=== PATIENT | female | born 1990 | race Asian ===

== ENCOUNTER 2024-12-04 20:24 | Inpatient (IN) | payer MEDICAID, SELFPAY ==
--- NOTE | ~2024-12-04 | XR_ITS ---
CLINICAL HISTORY: sickle cell crisis 2 view chest x-ray Comparison: None provided Findings: Bibasilar atelectasis. No significant pleural effusion or pneumothorax. Prominent cardiac silhouette. Right chest port tip projects near the cavoatrial junction. No acute fracture. IMPRESSION: Bibasilar atelectasis. This document has been electronically signed by: Mayco Arana MD on 12/05/2024 00:54:41
--- NOTE | ~2024-12-04 | US_ITS ---
CLINICAL HISTORY: transaminitis, high bili, SC crisis, back pain US abdomen limited with duplex and color Doppler Comparison: None Findings: Visualized pancreas is normal. Tail obscured by bowel gas. Liver is normal in size and mildly echogenic throughout. Right lobe length 15.7 cm. No focal hepatic masses. Common duct 3.3 mm diameter. Post cholecystectomy. Main portal vein antegrade. Right kidney measures, 11.0 cm in length. Normal cortical width and echotexture. No hydronephrosis calculus or mass. Impression: 1. Normal-sized liver with coarse hepatic echotexture reflecting hepatic steatosis or diffuse hepatocellular disease. 2. Post cholecystectomy. Normal caliber common bile duct. 3. Antegrade flow portal vein. This document has been electronically signed by: Ananda Mosquera MD on 12/05/2024 15:13:04
[2024-12-04 20:39] VITALS: BP 128/72; PULSE 112; RESP 16; TEMP 37.1; O2SAT 95; BMI 29.6
--- NOTE | 2024-12-04 20:40 | ECG_ITS ---
Test Reason : SICKLE CELL Blood Pressure : */* mmHG Vent. Rate : 102 BPM Atrial Rate : 102 BPM P-R Int : 136 ms QRS Dur : 74 ms QT Int : 312 ms P-R-T Axes : 34 20 2 degrees QTcB Int : 406 ms Sinus tachycardia Nonspecific T wave abnormality Abnormal ECG No previous ECGs available Referred By: Alton Schaffer Electronically Signed By: ELVIA GONZALES MD
--- NOTE | 2024-12-04 20:40 | ED_ITS ---
HPI - General Adult General Chief complaint: General Medical Stated complaint: not feeling well (Sickle Cell Anemia) Time Seen by Provider: 12/04/24 22:31 Source: patient Mode of arrival: ambulatory Limitations: no limitations History of Present Illness ED Provider: HPI narrative: This is a 34-year-old woman with a history of sickle cell disease, falls up with Dr. 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 Related Data Allergies Allergy/AdvReac Type Severity Reaction Status Date / Time Chocolate Allergy Anaphylaxis Verified 12/04/24 20:40 Review of Systems 2 Constitutional: Constitutional: Reports as per [facility] Social History Social History Smoked in Last 30 Days: No Use of substances other than those prescribed or required for medical reasons: No Advance Directives: No Advance Directives Information Provided: No Patient : No Physical Exam ED Vital Signs: Vital Signs - 24 hr 12/04/24 20:39 12/04/24 22:26 12/05/24 00:31 Temperature 98.8 F 99.1 F 98.8 F Pulse Rate 112 H 106 H 104 H Respiratory Rate 16 18 16 Blood Pressure 128/72 109/70 108/64 Pulse Oximetry 95 98 98 Oxygen Delivery Method Room Air Room Air Room Air BMI result Body Mass Index 29.6 Const Other: * Gen: ?In discomfort * HEENT: PERRLA, EOMI, MMM, * Neck: Supple, no LAD * CV: RRR, no obvious murmurs appreciated * Resp: ?No wheezing rales rhonchi no stridor moving air well * Abd: ?Bowel sounds are present, no tenderness no rebound no rigidity * MSK: FROM, strength 5/5 all extremities * Skin: Warm, dry, intact, * Neuro: ?Alert and oriented x3, moving upper and lower extremities symmetrically, no obvious facial asymmetry noted Course Course Course Narrative: RME, this is a rapid medical exam performed by Riaz cShaffer please refer to primary provider for complete H&P- 34 year old female with history of sickle cell anemia presents for evaluation of general malaise and body aches including lower back pain. Plan for labs including reticulocyte count, EKG and a urinalysis. Medications Administered Discontinued Medications Generic Name Dose Route Start Last Admin Trade Name Molly PRN Reason Stop Dose Admin Diphenhydramine HCl 25 mg 12/04/24 22:40 12/04/24 22:53 Diphenhydramine Hcl 50 Mg/Ml Vial IVPUSH 12/04/24 22:41 25 mg ONCE ONE Administration Hydromorphone HCl 3 mg 12/04/24 22:40 12/04/24 22:53 Hydromorphone Hcl 2 Mg/Ml Vial IVPUSH 12/04/24 22:41 3 mg ONCE ONE Administration Protocol Lactated Ringer's 1,000 mls @ 999 mls/hr 12/04/24 22:45 12/04/24 22:49 Lr IV 12/04/24 23:45 999 mls/hr .Q1H1M NIEVES Administration Wide Open Ondansetron HCl 4 mg 12/04/24 22:40 12/04/24 22:54 Ondansetron Hcl 4 Mg/2 Ml Vial IVPUSH 12/04/24 22:41 4 mg ONCE ONE Administration Medical Decision Making Medical Decision Making MDM Narrative: Patient is presenting with sickle cell crisis, consideration or complications associated with sickle cell as below, she just moved to [place] and this is her 1st time she has in his hospital, she has no hypoxia, no chest pain or other respiratory symptoms however she has had ACS in the past so I am going to obtain chest x-ray to evaluate for presence of any infiltrates, abdominal exam is benign do not feel that there was any need for further imaging such as CT to evaluate for splenic sequestration, we will workup for aplastic crisis, no evidence for stroke, we will initiate medication regimen as per her typical plan. I also reviewed her [employer], she gets prescribed narcotic medications by her suture winder hand. 1217: I reviewed patient's prior blood work, she typically has leukocytosis and elevated bilirubin, no fevers, no hypoxia, chest x-ray without obvious consolidations, do not anticipate underlying infection, no indication for blood cultures, or IV antibiotics, I also shared patient is admission plan that came up with the hospitalist when I reviewed patient's [facility] records, preferences not to use IV narcotics and Benadryl though they has been use during her last admission unless determined by her suture winder hand that she has an acute crisis but this is from [facility], I will order not a dose of IV an pain medications and then she can be managed with oral medications on the floor as per [facility] regimen if determined to be adequate. Differential Diagnosis Differential Diagnoses: The differential diagnosis associated with the presentation includes (Acute chest syndrome, splenic sequestration, stroke, hemolysis, aplastic crisis) Admission/Observation Consideration of admission/observation: Escalation of care including admission/observation considered 2022 Emergency Medicine Coding Guide from [employer] on 12/05/2024 All calculations should be rechecked by clinician prior to use RESULT SUMMARY: 5 Estimated Level of Service Problems: High (5) Risk: High (5) Data: Extensive (5) NARRATIVE MDM: This patient's problem complexity is High as patient: with chronic illness(es) with severe exacerbation/progression/side effects. This patient's risk is High due to: overall presentation requiring evaluation for a potentially High-risk process. This patient's data complexity is Extensive due to: -multiple tests ordered/reviewed -external notes reviewed -independent interpretation of imaging or EKG INPUTS: Number and Complexity ?> 1 = 5: chronic illness w/severe exacerbation (a) Risk level ?> 4 = High Tests ordered ?> 2 = 2 Tests results reviewed (excluding labs) ?> 2 = 2 Prior external notes reviewed ?> 1 = 1 Assessment requiring and independent historian ?> 0 = No Independent interpretation of tests ?> 1 = Yes Discussed management/test interpretation w/external professional ?> 0 = No Consult Healthcare Provider Management of the patient was discussed with: Hospitalist Lab Data [facility] Lab Attestation statement: I reviewed the patient's lab results. 12/04/24 22:47 12/04/24 22:47 Labs: Lab Results 12/04/24 12/04/24 Range/Units 22:47 23:13 WBC 15.6 H (4.8-10.8) X10*3/uL RBC 2.67 L (4.20-5.50) X10*6/uL Hgb 10.6 L (12.0-16.0) g/dl Hct 28.6 L (37.0-47.0) % MCV 107.1 H (80.0-98.0) fL MCH 39.7 H (27.0-33.0) pg MCHC 37.1 H (31.0-35.0) g/dl RDW 15.0 (11.0-16.0) % Plt Count 256 (160-400) X10*3/uL MPV 9.2 L (9.4-12.3) fL Immature Gran % (Auto) 0.4 (0.0-0.4) % Neut % (Auto) 66.8 (45-73) % Lymph % (Auto) 23.2 (20-40) % [place] % (Auto) 8.3 (2-11) % Eos % (Auto) 0.8 (0-4) % Baso % (Auto) 0.5 (0-2) % Lymph # (Auto) 3.6 (1.2-4.9) X10*3/uL [place] # (Auto) 1.3 H (0.1-1.2) X10*3/uL Eos # (Auto) 0.1 (0.0-0.4) X10*3/uL Baso # (Auto) 0.1 (0.0-0.2) X10*3/uL Abs Immat Gran (auto) 0.06 H (0.00-0.03) X10*3/uL Absolute Neuts (auto) 10.4 H (2.0-8.3) x10*3/uL Absolute Nucleated RBC 0.240 H (0.0-0.012) X10*3/uL Nucleated RBC % (auto) 1.5 H (0.0-0.2) /100WBC Absolute Retic 0.295 H (0.026-0.095) X10*6/uL Percent Retic 11.0 H (0.5-1.8) % Immature Retic Fraction 41.1 H (3.0-15.9) % Retic Hgb Equivalent 40.0 H (30.0-35.0) pg Sodium 139 (135-145) mmol/L Potassium 3.5 (3.3-5.1) mmol/L Chloride 104 (96-108) mmol/L Carbon Dioxide 24 (22-29) mmol/L Anion Gap 15 (12-20) BUN 7 L (9-16) mg/dL Creatinine 0.64 (0.5-1.4) mg/dL Estim Creat Clear Calc 137.2 Estimated GFR > 60 Random Glucose 111 (60-115) mg/dL Calcium 9.1 (8.4-10.2) mg/dL Total Bilirubin 3.7 H (0.0-1.0) mg/dL AST 75 H (5-31) U/L ALT 90 H (0-31) U/L Alkaline Phosphatase 116 (39-117) U/L Total Creatine Kinase 27 (26-140) U/L Total Protein 8.9 H (6.5-8.0) g/dL Albumin 4.5 (3.5-5.0) g/dL Lipase 8 (8-78) U/L Beta HCG, Quant < 2 mIU/mL COVID-19 (DILCIA) Negative (Negative) COVID-19 Clin Com See Note Independent Interpretation I performed an independent interpretation of an: EKG (102 beats per minute, otherwise normal ECG without dysrhythmia, AV bruce blocks or ST-T changes to suspect underlying ACS, my independent interpretation) and Plain X-Ray (No obvious consolidations) Prescription Management I considered prescription management with: Pain Medication Chronic Conditions Patient?s care impacted by: Other (Sickle cell) Critical Care Time Critical Care Time Critical Care Time: Yes Total Critical Care Time: 45 Attestation: Time is exclusive of separately billable procedures. Time includes: direct patient care, patient reassessment, coordination of patient care, interpretation of data (laboratory data, pulse oximetry, arterial blood gases and chest xrays), review of patient's medical records, medical consultation and documentation of patient care. Procedures excluded from critical care time: central intravenous line placement and electrocardiography. Discharge Plan Discharge Clinical Impression: Sickle cell crisis Patient Disposition: Admitted As Inpatient Print Language: Chinese
[2024-12-04 22:26] VITALS: BP 109/70; PULSE 106; RESP 18; TEMP 37.3; O2SAT 98
[2024-12-04] MEDS: Lactated Ringers 1,000 ML 999 ML IV (22:49)
[2024-12-04 22:54] LABS: Hematocrit 28.6 % (37.0-47.0); Hemoglobin 10.6 g/dl (12.0-16.0); Imm Gran Abs Auto 0.06 X10*3/uL (0.00-0.03); Imm Gran Pct Auto 0.4 % (0.0-0.4); Lymphocytes Absolute Auto 3.6 X10*3/uL (1.2-4.9); MANUAL DIFF FLAG NO; Mean Corpuscular HGB Conc 37.1 g/dl (31.0-35.0); Mean Corpuscular Hemoglobin 39.7 pg (27.0-33.0); Mean Corpuscular Volume 107.1 fL (80.0-98.0); NRBC Abs Auto 0.240 X10*3/uL (0.0-0.012); Platelet Count 256 X10*3/uL (160-400); Red Blood Count 2.67 X10*6/uL (4.20-5.50); Reticulocytes Absolute 0.295 X10*6/uL (0.026-0.095); White Blood Count 15.6 X10*3/uL (4.8-10.8)
[2024-12-04 22:55] LABS: NRBC Pct Auto 1.5 /100WBC (0.0-0.2)
[2024-12-04 23:16] LABS: Alanine Aminotransferase 90 U/L (0-31); Albumin Level 4.5 g/dL (3.5-5.0); Alkaline Phosphatase 116 U/L (39-117); Anion Gap 15 (12-20); Aspartate Amino Transferase 75 U/L (5-31); Blood Urea Nitrogen 7 mg/dL (9-16); Calcium 9.1 mg/dL (8.4-10.2); Carbon Dioxide 24 mmol/L (22-29); Chloride 104 mmol/L (96-108); Creatinine Clr Calc Pharmacy 137.2; Estimated Glomerular Filt Rate > 60; Lipase 8 U/L (8-78); Potassium 3.5 mmol/L (3.3-5.1); Sodium 139 mmol/L (135-145); Total Protein 8.9 g/dL (6.5-8.0)
[2024-12-04 23:35] LABS: COVID-19 Test Negative (Negative); IDNOW Serial# 58CA691E
[2024-12-05] VITALS (10 sets, daily range): BP systolic 94–126; BP diastolic 58–75; PULSE 82–109; RESP 14–20; TEMP 36.1–37.1; O2SAT 94–98; BMI 28.7
--- NOTE | 2024-12-05 00:52 | PM.IMHP ---
History of Present Illness Date of Service: 12/05/24 Attending physician on admission: Jane Carter Chief Complaint: sickle cell crisis Pt is a 34 yo black female with PMH Sickle cell anemia diagnosed 6 months of age with multiple admissions for sickle cell crisis, cholecystectomy, avascular necrosis of the hips, asthma, anxiety, acute chest syndrome as a child is being seen today in the emergency department for report of a sickle cell crisis involving right hip pain and back pain. Patient states her pain started 2 days prior and then nausea developed earlier today prompting patient to seek intervention. Patient did try to reach the Cancer Center through [facility] for an appointment to treat her acute issues in the outpatient setting but there were no appointments available. Patient does have a current care plan for pain management established with [facility] through her railroad car painter in the ED provider was able to provide a copy. Patient recently moved to [place] and sought treatment here at [facility] as we are with the closest emergency department. Patient states her usual pain management regimen is morphine long-acting 30 mg q.8 hours along with oxycodone for breakthrough pain and then Benadryl and Zofran as needed. Patient does use marijuana often to help with pain management. Patient denies any regular alcohol use. Patient does follow with a railroad car painter at [facility] and also has a therapist in the community to help with pain and anxiety. Patient's a previous smoker. Patient is currently on disability and is now just been approved for [employer] N[employer]SE [employer] hours as patient lives alone and will soon be having help with everyday activities. Patient has received 2 mg of IV Dilaudid as well as Benadryl and Zofran and symptoms have improved. Patient denies any current nausea, chest pain, abdominal pain and her labs notes an elevated T bilirubin and LFTs secondary to sickle cell crisis most likely. Leukocytosis also noted and is likely reactive but UA is pending and chest x-ray is negative for any acute findings. Clinical exam is reassuring. Review of Systems Review of Systems: Patient denies any current chest pain, abdominal pain, lower leg pain. Patient is reporting right lower back pain currently. Patient states pain has improved with the IV Dilaudid. Patient denies any headaches, visual changes or difficulty swallowing. Patient denies any recent falls. Yes all other systems are reviewed and are negative [facility] Medical History (Updated 12/05/24 @ 01:52 by PHILLIP Patel) IUD (intrauterine device) in place Marijuana use Former smoker Avascular necrosis of bone of hip Asthma Sickle cell anemia Cognitive capacity: A and O X3 Functional capacity: independent ambulation Patient : No (beta HCG negative ) Pertinent family history: Mother estranged from patient Father age 57 from prostate cancer Surgical History (Updated 12/05/24 @ 01:52 by PHILLIP Patel) Hx of cholecystectomy Hip joint replacement status Social History Patient Tobacco Use Status: Never used Tobacco Smoked in Last 30 Days: No Use of substances other than those prescribed or required for medical reasons: No Advance Directives: No Advance Directives Information Provided: No Nutrition Risks: No Nutritional Risk Patient : No (beta HCG negative ) Ebola Risk: Travel/Contact With Anyone From Affected Area/s: No Has Patient Experienced Ebola Symptoms: No Meds Allergies Allergy/AdvReac Type Severity Reaction Status Date / Time Chocolate Allergy Anaphylaxis Verified 12/04/24 20:40 Physical Exam Vital Signs and Narrative: Vital Signs: Last Vital Signs Temp 98.8 F 12/05/24 00:31 Pulse 104 H 12/05/24 00:31 Resp 16 12/05/24 00:31 BP 108/64 12/05/24 00:31 Pulse Ox 98 12/05/24 00:31 O2 Del Method Room Air 12/05/24 00:31 BMI result Body Mass Index 29.6 Alert and orientated X3, able to give good history. Appears comfortable and calm Neuro: CN II-X11 intact, no deficits, visual acuity intact EYES: PERRLA, EOM intact, sclerae nonicteric, conjunctiva pink ENT: hearing intact, no issues with swallowing, uvula midline, lips moist, nares patent no epistaxis Cardiac: S1 S2 RRR, tachycardia 106, no murmur, no JVD, no edema in Lower ext Pulmonary: lungs clear to auscultation B Abdominal: BS active in all 4 quadrants, no guarding, tenderness, rebounding MSK: strength 5/5 upper and lower extremities : no CVA tenderness no bladder distension Extremities: no edema in lower extremities, PT and DP pulses palpable +2 Psych: mood stable, judgement and insight good Skin: No rashes or lesions noted Results Labs 12/04/24 22:47 12/04/24 22:47 Labs: Laboratory Results - last 24 hr 12/04/24 12/04/24 22:47 23:13 MCV 107.1 H MCH 39.7 H MCHC 37.1 H RDW 15.0 Plt Count 256 MPV 9.2 L Immature Gran % (Auto) 0.4 Neut % (Auto) 66.8 Lymph % (Auto) 23.2 [place] % (Auto) 8.3 Eos % (Auto) 0.8 Baso % (Auto) 0.5 Lymph # (Auto) 3.6 [place] # (Auto) 1.3 H Eos # (Auto) 0.1 Baso # (Auto) 0.1 Abs Immat Gran (auto) 0.06 H Absolute Neuts (auto) 10.4 H Absolute Nucleated RBC 0.240 H Nucleated RBC % (auto) 1.5 H Absolute Retic 0.295 H Percent Retic 11.0 H Immature Retic Fraction 41.1 H Retic Hgb Equivalent 40.0 H Anion Gap 15 Estim Creat Clear Calc 137.2 Estimated GFR > 60 Random Glucose 111 Calcium 9.1 Total Bilirubin 3.7 H AST 75 H ALT 90 H Alkaline Phosphatase 116 Total Creatine Kinase 27 Total Protein 8.9 H Albumin 4.5 Lipase 8 Beta HCG, Quant < 2 COVID-19 (DILCIA) Negative COVID-19 Clin Com See Note ECG Attestation: I personally reviewed and interpreted this ECG as follows: (Sinus tachycardia with normal QTC of 406) Prior ECG tracings: available for review Assessment and Plan (1) Sickle cell crisis: Status: Acute Plan Pt is a 34 yo black female with PMH Sickle cell anemia diagnosed 6 months of age with multiple admissions for sickle cell crisis, cholecystectomy, avascular necrosis of the hips, asthma, anxiety, acute chest syndrome as a child is being seen today in the emergency department for report of a sickle cell crisis involving right hip pain and back pain. Patient reports improvement in pain since starting IV Dilaudid. Patient's nausea has resolved. Patient does follow with a railroad car painter through [facility]. Patient did try to seek outpatient intervention through the Cancer [facility] at [facility] but there were no available appointments. Sickle Cell Crisis/ SSA Pain management to include Dilaudid 2 mg IV q.2 hours PRN, continue long-acting morphine 15 mg Q 8 Continue Benadryl for itching PRN Continue Zofran for nausea p.r.n. Continue IV hydration Patient uses marijuana medically often to help with pain management Patient recently approved for VOCATIONAL NURSE LVN services, we will be started soon Patient sees therapist in the community to help with pain and anxiety Leukocytosis, likely reactive UA is pending No evidence of upper respiratory illness or hypoxia Chest x-ray noted for bibasilar atelectasis Incentive spirometry ordered No empiric antibiotics started at this time Abnormal LFTs Secondary to sickle cell crisis Patient is status post cholecystectomy Clinical exam is reassuring Check CMP in the a.m. DVT prophylaxis: Lovenox Med rec pending Full code status Quality Stroke Does the patient have a stroke diagnosis?: No Reason for No Anti-thrombotic by Day Two: N/A - Med Ordered VTE Prior VTE?: No VTE Risk Level:: Medical - moderate - high VTE Device Contraindication: N/A - Device Ordered VTE Drug Contraindication: N/A - Med Ordered
[2024-12-05] MEDS: Morphine Sulfate ER 15 MG TABLET.ER PO ×3 (05:56→22:43)
[2024-12-05 06:05] LABS: Hematocrit 25.4 % (37.0-47.0); Hemoglobin 9.5 g/dl (12.0-16.0); Imm Gran Abs Auto 0.09 X10*3/uL (0.00-0.03); Imm Gran Pct Auto 0.5 % (0.0-0.4); MANUAL DIFF FLAG SCAN; Mean Corpuscular HGB Conc 37.4 g/dl (31.0-35.0); Mean Corpuscular Hemoglobin 40.3 pg (27.0-33.0); Mean Corpuscular Volume 107.6 fL (80.0-98.0); NRBC Abs Auto 0.270 X10*3/uL (0.0-0.012); Platelet Count 223 X10*3/uL (160-400); Red Blood Count 2.36 X10*6/uL (4.20-5.50); SCAN SMEAR FLAG 1; White Blood Count 16.8 X10*3/uL (4.8-10.8)
[2024-12-05 06:08] LABS: Appearance Urine Clear; Glucose Urine UA Negative (Negative); PH 5.5 (5.0-9.0); Specific Gravity - Urine 1.010 (1.005-1.025); UMIC TRIGGER UACC YES
[2024-12-05 06:20] LABS: Anion Gap 13 (12-20); Blood Urea Nitrogen 6 mg/dL (9-16); Calcium 8.6 mg/dL (8.4-10.2); Carbon Dioxide 24 mmol/L (22-29); Chloride 107 mmol/L (96-108); Creatinine Clr Calc Pharmacy 135.2; Estimated Glomerular Filt Rate > 60; Potassium 3.8 mmol/L (3.3-5.1); Sodium 140 mmol/L (135-145)
[2024-12-05 06:22] LABS: Lymphocytes Absolute Auto 6.4 X10*3/uL (1.2-4.9); NRBC Pct Auto 1.6 /100WBC (0.0-0.2)
--- NOTE | 2024-12-05 07:59 | PC.NURSE ---
Placed on Tele as per orders
--- NOTE | 2024-12-05 07:59 | PHA.MEDREC ---
Pharmacy Consult ? Medication Reconciliation Pharmacy has completed the medication reconciliation. Spoke to patient at bedside, able to name all drugs, strengths, and directions. Patient also noted she has oxycodone 15mg IR Q4H PRN but does not like to get that while she is in the hospital and asked to leave off med rec.
[2024-12-05 08:22] LABS: Alanine Aminotransferase 87 U/L (0-31); Albumin Level 4.0 g/dL (3.5-5.0); Alkaline Phosphatase 105 U/L (39-117); Aspartate Amino Transferase 69 U/L (5-31); Total Protein 7.9 g/dL (6.5-8.0)
--- NOTE | 2024-12-05 10:12 | PC.NURSE ---
Pt refusing sequential stockings , educated on importance pt verbalized understanding
--- NOTE | 2024-12-05 12:14 | HO.PM.IMPN ---
Subjective Subjective Date of Service: 12/05/24 Interval History: Patient feels much better since admission. Reports persistence of her right mid back pain. She believes that the trigger for her SCD crisis could be secondary to dehydration and increased physical activity over the past few days (despite attempted self hydration). Physical Exam Exam: Exam: General: A&O x3, oriented to time place person and situation, comfortable. In pain. Not agitated. Cardiac: S1, S2 auscultated with no S3/4, no MRG. Well perfused. Respiratory: Normal breath sounds auscultated throughout all lung zones, without wheezing, rales. Normal rate. GI/ : No abdominal pain on palpation, no masses or distentions. No McBurney's point, lichen deep palpation of abdomen within normal limits, no hepatosplenomegaly palpated. MSK: Normal ambulation without pain at bony prominences or musculature. Chest wall revealing Port-A-Cath. No fluctuation, discharge, bleeding noted. Right-sided paralumbar pain noted on examination. Neurological: Normal neurological examination on overview, without obvious CN II-XII abnormalities. Vital Signs: Vital Signs: Last Vital Signs Temp 97.5 F 12/05/24 07:55 Pulse 89 12/05/24 07:55 Resp 14 12/05/24 07:55 BP 101/60 12/05/24 07:55 Pulse Ox 94 12/05/24 07:55 O2 Del Method Room Air 12/05/24 07:55 BMI result Body Mass Index 28.7 Objective Data Active Medications Acetaminophen (Acetaminophen 325 Mg Tablet) 650 mg PO Q6H PRN PRN Reason: Pain, Mild 1-3,fever,headache Albuterol/Ipratropium (Albuterol/Iprat 2.5/0.5mg 3 Ml Ampul.Neb) 3 ml INHALE Q4H PRN PRN Reason: Shortness of Breath/Wheezing Calcium Carbonate (Calcium Carbonate 750 Mg Tab.Chew) 750 mg PO Q4H PRN PRN Reason: Heartburn Diphenhydramine HCl (Diphenhydramine Hcl 50 Mg/Ml Vial) 25 mg IVPUSH Q6H PRN PRN Reason: Itching Last Admin: 12/05/24 10:08 Dose: 25 mg Documented By: GAL Enoxaparin Sodium (Enoxaparin Sodium 40 Mg/0.4 Ml Syringe) 40 mg SUBCUT BEDTIME [facility] Last Admin: 12/05/24 01:47 Dose: Not Given Documented By: SHERLY Non-Admin Reason: Patient Refused Hydromorphone HCl (Hydromorphone Hcl 2 Mg/Ml Vial) 2 mg IVPUSH Q2H PRN; Protocol PRN Reason: Pain, Severe (Pain Scale 7-10) Last Admin: 12/05/24 10:08 Dose: 2 mg Documented By: GAL Sodium Chloride (Ns) 1,000 mls @ 125 mls/hr IVCONT .Q8H [facility] Last Admin: 12/05/24 10:08 Dose: 125 mls/hr Documented By: GAL Magnesium Hydroxide (Milk Of Magnesia 30 Ml Oral.Susp) 30 ml PO DAILY PRN PRN Reason: Constipation Melatonin (Melatonin 3 Mg Tablet) 6 mg PO BEDTIME PRN PRN Reason: Insomnia Morphine Sulfate (Morphine Sulfate Er 15 Mg Tablet.Er) 15 mg PO Q8H [facility] Last Admin: 12/05/24 05:56 Dose: 15 mg Documented By: SHERLY Ondansetron HCl (Ondansetron Hcl 4 Mg/2 Ml Vial) 4 mg IVPUSH Q8H PRN PRN Reason: Nausea and Vomiting Last Admin: 12/05/24 03:51 Dose: 4 mg Documented By: SHERLY Polyethylene Glycol (Polyethylene Glycol 3350 17 Gm Powd.Pack) 17 gm PO DAILY PRN PRN Reason: Constipation Senna (Sennosides 8.6 Mg Tablet) 17.2 mg PO BEDTIME [facility] Sodium Chloride (0.9 % Sodium Chloride Flush 3 Ml Syringe) 3 ml IVFLUSH QSHIFT [facility] Last Admin: 12/05/24 07:43 Dose: Not Given Documented By: GAL Non-Admin Reason: IV Running Labs 12/05/24 05:57 12/05/24 05:57 Labs: Laboratory Results - last 24 hr 12/04/24 12/04/24 12/05/24 22:47 23:13 05:57 MCV 107.1 H 107.6 H MCH 39.7 H 40.3 H MCHC 37.1 H 37.4 H RDW 15.0 15.2 Plt Count 256 223 MPV 9.2 L 9.0 L Immature Gran % (Auto) 0.4 0.5 H Neut % (Auto) 66.8 52.9 Lymph % (Auto) 23.2 37.9 [place] % (Auto) 8.3 7.2 Eos % (Auto) 0.8 1.0 Baso % (Auto) 0.5 0.5 Lymph # (Auto) 3.6 6.4 H [place] # (Auto) 1.3 H 1.2 Eos # (Auto) 0.1 0.2 Baso # (Auto) 0.1 0.1 Abs Immat Gran (auto) 0.06 H 0.09 H Absolute Neuts (auto) 10.4 H 8.9 H Absolute Nucleated RBC 0.240 H 0.270 H Nucleated RBC % (auto) 1.5 H 1.6 H Smear Tech's Comments VERIFIED Absolute Retic 0.295 H Percent Retic 11.0 H Immature Retic Fraction 41.1 H Retic Hgb Equivalent 40.0 H Anion Gap 15 13 Estim Creat Clear Calc 137.2 135.2 Estimated GFR > 60 > 60 Random Glucose 111 108 Calcium 9.1 8.6 Total Bilirubin 3.7 H 4.4 H Direct Bilirubin 0.7 H AST 75 H 69 H ALT 90 H 87 H Alkaline Phosphatase 116 105 Total Creatine Kinase 27 Total Protein 8.9 H 7.9 Albumin 4.5 4.0 Lipase 8 Beta HCG, Quant < 2 Urine Color Dark Yellow Urine Appearance Clear Urine pH 5.5 Ur Specific [place] 1.010 Urine Protein Negative Urine Glucose (UA) Negative Urine Ketones Trace Urine Blood Negative Urine Nitrite Negative Ur Leukocyte Esterase Trace H Urine RBC 0-2 Urine WBC 0-5 Ur Squamous Epith Cells 3-5 Urine Bacteria Trace Hyaline Casts 0-2 COVID-19 (DILCIA) Negative COVID-19 Clin Com See Note Assessment and Plan (1) Sickle cell crisis: Status: Acute (2) Sickle cell anemia: Status: Acute (3) Transaminitis: Status: Acute (4) Hyperbilirubinemia: Status: Acute Plan 34-year-old female with PMH sickle 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 Sickle cell crisis Sickle cell disease Anemia Dehydration Arthralgia & back pain Reports triggering event as likely dehydration increased exertion over the past few days. No evidence of infective nidus. Physical examination unremarkable for acute or concerning findings. Laboratory evaluation reveals transaminitis, leukocytosis, and hyperbilirubinemia. S/p cholecystectomy. PLAN - IVF 125 cc/hour NaCl 0.9% - analgesia: Dilaudid 2 mg IV Q 2-4 hour p.r.n. - morphine 15 mg Q 8 hourly p.o. (home dose) - Benadryl p.r.n. - Zofran p.r.n. - has outpatient hematology Leukocytosis Likely reactive in the setting of sickle cell crisis. No infective nidus identified. 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 PLAN - trend LFTs - right upper quadrant ultrasound - monitor levels closely - avoid hepatotoxic agents [employer] - VTE: Enoxaparin 40 mg SQ OD - CODE STATUS: Full code - DIET: Regular Total time managing care of this patient today: 35 minutes. Quality Stroke Does the patient have a stroke diagnosis?: No Reason for No Anti-thrombotic by Day Two: N/A - Med Ordered VTE Prior VTE?: No VTE Risk Level:: Medical - moderate - high VTE Device Contraindication: N/A - Device Ordered VTE Drug Contraindication: N/A - Med Ordered
[2024-12-06] VITALS (12 sets, daily range): BP systolic 102–113; BP diastolic 56–70; PULSE 95–100; RESP 14–18; TEMP 36–36.6; O2SAT 94–97
--- NOTE | 2024-12-06 02:20 | PC.NURSE ---
At approx 2100, RN went into room with scheduled Morphine oral medication. Pts chief complaint was c/o 8/10 pain. Pt refused oral morphine dose, stating she wanted PRN IV dilaudid dose as she claims it was due at 8:30pm . This RN educated pt on PRN vs scheduled medications. Pt reported she would take scheduled Morphine at 2200.
[2024-12-06] MEDS: Morphine Sulfate ER 15 MG TABLET.ER PO ×3 (06:09→21:53)
--- NOTE | 2024-12-06 11:42 | P.PNIM_ITS ---
Subjective Subjective Date of Service: 12/06/24 Interval History: No issues overnight. The patient is lying comfortably in bed, sleeping well. Some pain overnight, requiring Dilaudid. Overall, the patient reports her muscular pains have improved Energy has improved as well. Denies chest pain, palpitations, abdominal pain, dyspnea. Review of Systems Review of Systems: Yes all other systems are reviewed and are negative Physical Exam 2 Exam: Exam: General: A&O x3, oriented to time place person and situation, comfortable. In pain. Not agitated. Cardiac: S1, S2 auscultated with no S3/4, no MRG. Well perfused. Respiratory: Normal breath sounds auscultated throughout all lung zones, without wheezing, rales. Normal rate. GI/ : No abdominal pain on palpation, no masses or distentions. No McBurney's point, lichen deep palpation of abdomen within normal limits, no hepatosplenomegaly palpated. MSK: Normal ambulation without pain at bony prominences or musculature. Chest wall revealing Port-A-Cath. No fluctuation, discharge, bleeding noted. Right- sided paralumbar pain noted on examination. Neurological: Normal neurological examination on overview, without obvious CN II-XII abnormalities. Vital Signs: Vital Signs: Last Vital Signs Temp 97.6 F 12/06/24 11:17 Pulse 100 12/06/24 11:17 Resp 14 12/06/24 11:17 BP 105/61 12/06/24 11:17 Pulse Ox 97 12/06/24 11:17 O2 Del Method Room Air 12/06/24 11:17 BMI result Body Mass Index 28.7 Objective Data Active Medications Acetaminophen (Acetaminophen 325 Mg Tablet) 650 mg PO Q6H PRN PRN Reason: Pain, Mild 1-3,fever,headache Albuterol/Ipratropium (Albuterol/Iprat 2.5/0.5mg 3 Ml Ampul.Neb) 3 ml INHALE Q4H PRN PRN Reason: Shortness of Breath/Wheezing Calcium Carbonate (Calcium Carbonate 750 Mg Tab.Chew) 750 mg PO Q4H PRN PRN Reason: Heartburn Diphenhydramine HCl (Diphenhydramine Hcl 50 Mg/Ml Vial) 25 mg IVPUSH Q6H PRN PRN Reason: Itching Last Admin: 12/06/24 06:39 Dose: 25 mg Documented By: RALEIGH Enoxaparin Sodium (Enoxaparin Sodium 40 Mg/0.4 Ml Syringe) 40 mg SUBCUT BEDTIME [facility] Last Admin: 12/05/24 21:14 Dose: Not Given Documented By: RALEIGH Non-Admin Reason: Patient Refused Hydromorphone HCl (Hydromorphone Hcl 2 Mg/Ml Vial) 2 mg IVPUSH Q2H PRN; Protocol PRN Reason: Pain, Severe (Pain Scale 7-10) Last Admin: 12/06/24 10:08 Dose: 2 mg Documented By: FRANCISCO Sodium Chloride (Ns) 1,000 mls @ 125 mls/hr IVCONT .Q8H [facility] Last Admin: 12/06/24 09:04 Dose: 125 mls/hr Documented By: FRANCISCO Magnesium Hydroxide (Milk Of Magnesia 30 Ml Oral.Susp) 30 ml PO DAILY PRN PRN Reason: Constipation Melatonin (Melatonin 3 Mg Tablet) 6 mg PO BEDTIME PRN PRN Reason: Insomnia Morphine Sulfate (Morphine Sulfate Er 15 Mg Tablet.Er) 15 mg PO Q8H [facility] Last Admin: 12/06/24 06:09 Dose: 15 mg Documented By: RALEIGH Ondansetron HCl (Ondansetron Hcl 4 Mg/2 Ml Vial) 4 mg IVPUSH Q8H PRN PRN Reason: Nausea and Vomiting Last Admin: 12/05/24 12:29 Dose: 4 mg Documented By: GAL Polyethylene Glycol (Polyethylene Glycol 3350 17 Gm Powd.Pack) 17 gm PO DAILY PRN PRN Reason: Constipation Senna (Sennosides 8.6 Mg Tablet) 17.2 mg PO BEDTIME [facility] Last Admin: 12/05/24 21:15 Dose: Not Given Documented By: RALEIGH Non-Admin Reason: Patient Refused Sodium Chloride (0.9 % Sodium Chloride Flush 3 Ml Syringe) 3 ml IVFLUSH QSHIFT [facility] Last Admin: 12/06/24 09:09 Dose: Not Given Documented By: FRANCISCO Non-Admin Reason: IV Running Labs 12/05/24 05:57 12/05/24 05:57 Assessment and Plan (1) Transaminitis: Status: Acute (2) Hyperbilirubinemia: Status: Acute (3) Sickle cell crisis: Status: Acute (4) Sickle cell anemia: Status: Acute Plan 34-year-old female with PMH sickle 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 Sickle cell disease - Sickle cell crisis - Anemia - Dehydration - Arthralgia & back pain Reports triggering event as likely dehydration increased exertion over the past few days. No evidence of infective nidus. Physical examination unremarkable for acute or concerning findings. Laboratory evaluation reveals transaminitis, leukocytosis, and hyperbilirubinemia. S/p cholecystectomy. Improving gradually PLAN - Reduce IVF from 125 to 75 cc/hour NaCl 0.9% - analgesia: Dilaudid 2 mg IV Q 2-4 hour p.r.n. - morphine 15 mg Q 8 hourly p.o. (home dose) - Benadryl p.r.n. - Zofran p.r.n. - has outpatient hematology Leukocytosis Likely reactive in the setting of sickle cell crisis. No infective nidus identified. 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 PLAN - monitor levels closely - avoid hepatotoxic agents [employer] - VTE: Enoxaparin 40 mg SQ OD - CODE STATUS: Full code - DIET: Regular Quality Stroke Does the patient have a stroke diagnosis?: No Reason for No Anti-thrombotic by Day Two: N/A - Med Ordered VTE Prior VTE?: No VTE Risk Level:: Medical - moderate - high VTE Device Contraindication: N/A - Device Ordered VTE Drug Contraindication: N/A - Med Ordered
--- NOTE | 2024-12-06 12:05 | MHC.CM.PN ---
PT REPORTS SHE LIVES ALONE AND IS INDEPENDENT WITH CARE SHE HAS NO DME AND NO SERVICES COPY OF HCP REQUESTED, SHE REPORTS HER AGENT IS HER SISTER, JAMES DEY PCP: ANSLEY AVITIA DCP: HOME VIA PRIVATE TRANSPORT
[2024-12-07] VITALS (7 sets, daily range): BP systolic 96–114; BP diastolic 55–76; PULSE 81–103; RESP 18–19; TEMP 36.2–37.4; O2SAT 93–97
[2024-12-07] MEDS: Morphine Sulfate ER 15 MG TABLET.ER PO ×3 (05:40→21:26)
--- NOTE | 2024-12-07 12:11 | MHC.CM.PN ---
PER MD ROUNDS, PT STILL ACUTE, MAY REQUIRE 1-2 MORE DAYS DCR: HOME NO SERVICES VIA PRIVATE TRANSPORT
--- NOTE | 2024-12-07 13:38 | HO.PM.IMPN ---
Subjective Subjective Date of Service: 12/07/24 Interval History: No overnight events. Slept well overnight. Pain has been improving gradually. Denies chest pain, palpitations, diaphoresis, lower extremity pain. Muscle soreness has been gradually improving. Review of Systems Review of Systems: Yes all other systems are reviewed and are negative Physical Exam Exam: Exam: General: A&O x3, oriented to time place person and situation, comfortable. In pain. Not agitated. Cardiac: S1, S2 auscultated with no S3/4, no MRG. Well perfused. Respiratory: Normal breath sounds auscultated throughout all lung zones, without wheezing, rales. Normal rate. GI/ : No abdominal pain on palpation, no masses or distentions. Light and deep palpation of abdomen within normal limits, no hepatosplenomegaly palpated. MSK: Normal ambulation without pain at bony prominences or musculature. Chest wall revealing Port-A-Cath. No fluctuation, discharge, bleeding noted. Right-sided paralumbar pain noted on examination. Neurological: Normal neurological examination on overview, without obvious CN II-XII abnormalities. Vital Signs: Vital Signs: Last Vital Signs Temp 99.4 F 12/07/24 08:00 Pulse 95 12/07/24 12:00 Resp 18 12/07/24 12:00 BP 103/62 12/07/24 12:00 Pulse Ox 95 12/07/24 12:00 O2 Del Method Room Air 12/07/24 12:00 BMI result Body Mass Index 28.7 Objective Data Active Medications Acetaminophen (Acetaminophen 325 Mg Tablet) 650 mg PO Q6H PRN PRN Reason: Pain, Mild 1-3,fever,headache Albuterol/Ipratropium (Albuterol/Iprat 2.5/0.5mg 3 Ml Ampul.Neb) 3 ml INHALE Q4H PRN PRN Reason: Shortness of Breath/Wheezing Calcium Carbonate (Calcium Carbonate 750 Mg Tab.Chew) 750 mg PO Q4H PRN PRN Reason: Heartburn Diphenhydramine HCl (Diphenhydramine Hcl 50 Mg/Ml Vial) 25 mg IVPUSH Q6H PRN PRN Reason: Itching Last Admin: 12/07/24 08:15 Dose: 25 mg Documented By: MELANY Enoxaparin Sodium (Enoxaparin Sodium 40 Mg/0.4 Ml Syringe) 40 mg SUBCUT BEDTIME [facility] Last Admin: 12/06/24 19:50 Dose: 40 mg Documented By: ZACH Hydromorphone HCl (Hydromorphone Hcl 2 Mg/Ml Vial) 2 mg IVPUSH Q2H PRN; Protocol PRN Reason: Pain, Severe (Pain Scale 7-10) Last Admin: 12/07/24 11:22 Dose: 2 mg Documented By: MELANY Magnesium Hydroxide (Milk Of Magnesia 30 Ml Oral.Susp) 30 ml PO DAILY PRN PRN Reason: Constipation Melatonin (Melatonin 3 Mg Tablet) 6 mg PO BEDTIME PRN PRN Reason: Insomnia Morphine Sulfate (Morphine Sulfate Er 15 Mg Tablet.Er) 15 mg PO Q8H [facility] Last Admin: 12/07/24 05:40 Dose: 15 mg Documented By: ZACH Ondansetron HCl (Ondansetron Hcl 4 Mg/2 Ml Vial) 4 mg IVPUSH Q8H PRN PRN Reason: Nausea and Vomiting Last Admin: 12/05/24 12:29 Dose: 4 mg Documented By: GAL Polyethylene Glycol (Polyethylene Glycol 3350 17 Gm Powd.Pack) 17 gm PO DAILY PRN PRN Reason: Constipation Senna (Sennosides 8.6 Mg Tablet) 17.2 mg PO BEDTIME [facility] Last Admin: 12/06/24 19:51 Dose: 17.2 mg Documented By: ZACH Sodium Chloride (0.9 % Sodium Chloride Flush 3 Ml Syringe) 3 ml IVFLUSH QSHIFT [facility] Last Admin: 12/07/24 07:00 Dose: Not Given Documented By: MELANY Non-Admin Reason: IV Running Labs 12/05/24 05:57 12/05/24 05:57 Labs: Laboratory Results - last 24 hr 12/04/24 12/05/24 22:47 05:57 Smear Path Review Cancelled SEE NOTE Assessment and Plan (1) Transaminitis: Status: Acute (2) Hyperbilirubinemia: Status: Acute (3) Sickle cell crisis: Status: Acute (4) Sickle cell anemia: Status: Acute Plan 34-year-old female with PMH sickle 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 Sickle cell disease - Sickle cell crisis - Anemia - Dehydration - Arthralgia & back pain Reports triggering event as likely dehydration increased exertion over the past few days. No evidence of infective nidus. Physical examination unremarkable for acute or concerning findings. Laboratory evaluation reveals transaminitis, leukocytosis, and hyperbilirubinemia. S/p cholecystectomy. Improving gradually PLAN - DC IVF - analgesia: Dilaudid 2 mg IV Q 2-4 hour p.r.n. - morphine 15 mg Q 8 hourly p.o. (home dose) - Benadryl p.r.n. - Zofran p.r.n. - has outpatient hematology Leukocytosis Likely reactive in the setting of sickle cell crisis. No infective nidus identified. 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 Quality Stroke Does the patient have a stroke diagnosis?: No Reason for No Anti-thrombotic by Day Two: N/A - Med Ordered VTE Prior VTE?: No VTE Risk Level:: Medical - moderate - high VTE Device Contraindication: N/A - Device Ordered VTE Drug Contraindication: N/A - Med Ordered
[2024-12-07] MEDS: 0.9 % Sodium Chloride Flush 3 ML SYRINGE IVFLUSH ×2 (16:31→20:35)
[2024-12-08 03:29] VITALS: BP 109/70; PULSE 88; RESP 18; TEMP 36.1; O2SAT 98
[2024-12-08] MEDS: Morphine Sulfate ER 15 MG TABLET.ER PO ×3 (06:02→22:15)
[2024-12-08] MEDS: 0.9 % Sodium Chloride Flush 3 ML SYRINGE IVFLUSH ×3 (06:59→21:29)
[2024-12-08 07:46] VITALS: BP 114/65; PULSE 103; RESP 16; TEMP 36.6; O2SAT 95
[2024-12-08 10:27] LABS: Hematocrit 25.9 % (37.0-47.0); Hemoglobin 9.3 g/dl (12.0-16.0); Mean Corpuscular HGB Conc 35.9 g/dl (31.0-35.0); Mean Corpuscular Hemoglobin 39.6 pg (27.0-33.0); NRBC Abs Auto 0.890 X10*3/uL (0.0-0.012); Platelet Count 273 X10*3/uL (160-400); Red Blood Count 2.35 X10*6/uL (4.20-5.50); Reticulocytes Absolute 0.346 X10*6/uL (0.026-0.095); White Blood Count 15.0 X10*3/uL (4.8-10.8)
[2024-12-08 10:30] LABS: Mean Corpuscular Volume 110.2 fL (80.0-98.0); NRBC Pct Auto 5.9 /100WBC (0.0-0.2)
[2024-12-08 10:43] LABS: Alanine Aminotransferase 69 U/L (0-31); Albumin Level 3.8 g/dL (3.5-5.0); Alkaline Phosphatase 89 U/L (39-117); Anion Gap 11 (12-20); Aspartate Amino Transferase 43 U/L (5-31); Blood Urea Nitrogen 6 mg/dL (9-16); Calcium 8.8 mg/dL (8.4-10.2); Carbon Dioxide 26 mmol/L (22-29); Chloride 108 mmol/L (96-108); Creatinine Clr Calc Pharmacy 141.9; Estimated Glomerular Filt Rate > 60; Potassium 3.7 mmol/L (3.3-5.1); Sodium 141 mmol/L (135-145); Total Protein 7.2 g/dL (6.5-8.0)
--- NOTE | 2024-12-08 11:12 | P.PNIM_ITS ---
Subjective Subjective Date of Service: 12/08/24 Interval History: No overnight events. Slept well overnight. Pain has been improving gradually. Denies chest pain, palpitations, diaphoresis, lower extremity pain. Muscle soreness has been gradually improving. Review of Systems Review of Systems: Yes all other systems are reviewed and are negative Physical Exam 2 Exam: Exam: Appearing in no acute distress lung sounds are clear to auscultation heart regular rate rhythm, clear S1, S2 positive bowel sounds, abdomen is soft, nontender neuro patient is alert x3, no focal deficits Vital Signs: Vital Signs: Last Vital Signs Temp 97.8 F 12/08/24 07:46 Pulse 103 H 12/08/24 07:46 Resp 16 12/08/24 07:46 BP 114/65 12/08/24 07:46 Pulse Ox 95 12/08/24 07:46 O2 Del Method Room Air 12/08/24 07:46 BMI result Body Mass Index 28.7 Objective Data Active Medications Acetaminophen (Acetaminophen 325 Mg Tablet) 650 mg PO Q6H PRN PRN Reason: Pain, Mild 1-3,fever,headache Albuterol/Ipratropium (Albuterol/Iprat 2.5/0.5mg 3 Ml Ampul.Neb) 3 ml INHALE Q4H PRN PRN Reason: Shortness of Breath/Wheezing Calcium Carbonate (Calcium Carbonate 750 Mg Tab.Chew) 750 mg PO Q4H PRN PRN Reason: Heartburn Enoxaparin Sodium (Enoxaparin Sodium 40 Mg/0.4 Ml Syringe) 40 mg SUBCUT BEDTIME [facility] Last Admin: 12/07/24 20:41 Dose: Not Given Documented By: JALYN Non-Admin Reason: Patient Refused Comments: pt ambulates independently in room Hydromorphone HCl (Hydromorphone Hcl 2 Mg/Ml Vial) 1 mg IVPUSH Q4H PRN; Protocol PRN Reason: Pain, Severe (Pain Scale 7-10) Magnesium Hydroxide (Milk Of Magnesia 30 Ml Oral.Susp) 30 ml PO DAILY PRN PRN Reason: Constipation Melatonin (Melatonin 3 Mg Tablet) 6 mg PO BEDTIME PRN PRN Reason: Insomnia Morphine Sulfate (Morphine Sulfate Er 15 Mg Tablet.Er) 15 mg PO Q8H [facility] Last Admin: 12/08/24 06:02 Dose: 15 mg Documented By: JALYN Ondansetron HCl (Ondansetron Hcl 4 Mg/2 Ml Vial) 4 mg IVPUSH Q8H PRN PRN Reason: Nausea and Vomiting Last Admin: 12/05/24 12:29 Dose: 4 mg Documented By: GAL Polyethylene Glycol (Polyethylene Glycol 3350 17 Gm Powd.Pack) 17 gm PO DAILY PRN PRN Reason: Constipation Senna (Sennosides 8.6 Mg Tablet) 17.2 mg PO BEDTIME [facility] Last Admin: 12/07/24 20:35 Dose: 17.2 mg Documented By: JALYN Sodium Chloride (0.9 % Sodium Chloride Flush 3 Ml Syringe) 3 ml IVFLUSH QSHIFT [facility] Last Admin: 12/08/24 06:59 Dose: 3 ml Documented By: LANCE Labs 12/08/24 09:56 12/08/24 09:56 Labs: Laboratory Results - last 24 hr 12/08/24 09:56 MCV 110.2 H MCH 39.6 H MCHC 35.9 H RDW 16.3 H Plt Count 273 MPV 9.5 Absolute Nucleated RBC 0.890 H Nucleated RBC % (auto) 5.9 H Absolute Retic 0.346 H Percent Retic 14.9 H Immature Retic Fraction 51.4 H Retic Hgb Equivalent 37.3 H Anion Gap 11 L Estim Creat Clear Calc 141.9 Estimated GFR > 60 Random Glucose 101 Calcium 8.8 Total Bilirubin 2.4 H Direct Bilirubin 0.7 H AST 43 H ALT 69 H Alkaline Phosphatase 89 Total Protein 7.2 Albumin 3.8 Assessment and Plan (1) Transaminitis: Status: Acute (2) Hyperbilirubinemia: Status: Acute (3) Sickle cell crisis: Status: Acute (4) Sickle cell anemia: Status: Acute Plan 34-year-old female with PMH sickle 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 Sickle cell disease Patient [place] [facility] [place] [facility] [place] [facility] on the same day for sickle cell admission Reports triggering event as likely dehydration increased exertion over the past few days, however patient was [place] [facility] [place]. Physical examination unremarkable for acute or concerning findings. Improving s/p IVF Wean down dilaudid stopped benadryl has outpatient hematology, awaiting call back from her [facility] [place] Heme consult pending Leukocytosis Likely reactive No infection identified. 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 Total time managing care of this patient today: 35 minutes. Quality Stroke Does the patient have a stroke diagnosis?: No Reason for No Anti-thrombotic by Day Two: N/A - Med Ordered VTE Prior VTE?: No VTE Risk Level:: Medical - moderate - high VTE Device Contraindication: N/A - Device Ordered VTE Drug Contraindication: N/A - Med Ordered
[2024-12-08 11:13] VITALS: BP 116/67; PULSE 100; RESP 17; TEMP 36.2; O2SAT 97
[2024-12-08 11:42] LABS: Sickle Cell Scr POSITIVE (NEGATIVE)
[2024-12-08 15:31] VITALS: BP 104/59; PULSE 96; RESP 18; TEMP 37.1; O2SAT 96
--- NOTE | 2024-12-08 15:58 | PM.DS ---
DS: Providers Provider Date of Service: 12/08/24 Date of admission: 12/05/24 00:37 Primary care physician: Vitaliy Sanchez NP Consults: 12/08/24 11:12 Consult to Hematology / Oncology Routine Consulting Provider: [facility] Oncology/Hematology Reason for consultation: sickle cell DS: Diagnosis Discharge Diagnosis (1) Transaminitis: Status: Acute (2) Hyperbilirubinemia: Status: Acute (3) Sickle cell crisis: Status: Acute (4) Sickle cell anemia: Status: Acute DS: Summary Hospital Course Hospital Course: History and physical as per admitting provider. Pt is a 34 yo black female with PMH Sickle cell anemia diagnosed 6 months of age with multiple admissions for sickle cell crisis, cholecystectomy, avascular necrosis of the hips, asthma, anxiety, acute chest syndrome as a child is being seen today in the emergency department for report of a sickle cell crisis involving right hip pain and back pain. Patient states her pain started 2 days prior and then nausea developed earlier today prompting patient to seek intervention. Patient did try to reach the Cancer Center through [facility] for an appointment to treat her acute issues in the outpatient setting but there were no appointments available. Patient does have a current care plan for pain management established with [facility] through her aircraft painter apprentice in the ED provider was able to provide a copy. Patient recently moved to [place] and sought treatment here at [facility] as we are with the closest emergency department. Patient states her usual pain management regimen is morphine long-acting 30 mg q.8 hours along with oxycodone for breakthrough pain and then Benadryl and Zofran as needed. Patient does use marijuana often to help with pain management. Patient denies any regular alcohol use. Patient does follow with a aircraft painter apprentice at [facility] and also has a therapist in the community to help with pain and anxiety. Patient's a previous smoker. 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 Patient has received 2 mg of IV Dilaudid as well as Benadryl and Zofran and symptoms have improved. Patient denies any current nausea, chest pain, abdominal pain and her labs notes an elevated T bilirubin and LFTs secondary to sickle cell crisis most likely. Leukocytosis also noted and is likely reactive but UA is pending and chest x-ray is negative for any acute findings. Clinical exam is reassuring. 34-year-old woman admitted with back pain in the background of sickle cell disease Sickle cell disease. Patient was admittied to [facility] from 11/07 to 12/04, after dc from [facility] pt came to [facility] on the same day for sickle cell admission. Reports triggering event as likely dehydration increased exertion over the past few days, however patient was at [facility] for almost 4 weeks. Physical examination unremarkable for acute or concerning findings. Treated with IV fluids, narcotic pain medication. Dilaudid weaned down, Benadryl stopped. Also discussed case with her primary car construction superintendent at [facility] Dr. Corea, he is aware of patient's multiple admissions and agrees with her being discharged home. She can follow up with him outpatient as needed. Leukocytosis. No infectious source noted. Likely reactive, no empiric antibiotics as needed Transaminitis, Hyperbilirubinemia, Hepatosteatosis. 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 Physical Exam Exam: Exam: Appearing in no acute distress head is normocephalic atraumatic eyes pupils are PERRLA sclera is anicteric mouth throat mucous membranes are intact and moist neck is supple no lymphadenopathy, no JVD noted lung sounds are clear to auscultation heart regular rate rhythm, clear S1, S2 positive bowel sounds, abdomen is soft, nontender neuro patient is alert x3, no focal deficits Vital Signs: Vital Signs: Last Vital Signs Temp 98.7 F 12/08/24 15:31 Pulse 96 12/08/24 15:31 Resp 18 12/08/24 15:31 BP 104/59 L 12/08/24 15:31 Pulse Ox 96 12/08/24 15:31 O2 Del Method Room Air 12/08/24 15:31 BMI result Body Mass Index 28.7 DS: Data Data Completed and Pending Labs on day of discharge: Laboratory Results - last 24 hr 12/08/24 09:56 WBC 15.0 H RBC 2.35 L Hgb 9.3 L Hct 25.9 L MCV 110.2 H MCH 39.6 H MCHC 35.9 H RDW 16.3 H Plt Count 273 MPV 9.5 Absolute Nucleated RBC 0.890 H Nucleated RBC % (auto) 5.9 H Absolute Retic 0.346 H Percent Retic 14.9 H Immature Retic Fraction 51.4 H Retic Hgb Equivalent 37.3 H Sickle Cell Screen POSITIVE H Sodium 141 Potassium 3.7 Chloride 108 Carbon Dioxide 26 Anion Gap 11 L BUN 6 L Creatinine 0.61 Estim Creat Clear Calc 141.9 Estimated GFR > 60 Random Glucose 101 Calcium 8.8 Total Bilirubin 2.4 H Direct Bilirubin 0.7 H AST 43 H ALT 69 H Alkaline Phosphatase 89 Total Protein 7.2 Albumin 3.8 Discharge Plan Discharge Patient Disposition: Home, Self-Care Discharge Diagnosis: Back pain Referrals: Vitaliy Sanchez NP [Primary Care Provider, Family Practice] - 1 Week Discharge Medications: Continued folic acid 1 mg Tablet 1 mg PO DAILY morphine 15 mg tablet extended release 15 mg PO Q8H PRN (Reason: Pain) duloxetine 20 mg capsule,delayed release(DR/EC) 20 mg PO DAILY hydroxyurea (sickle cell) 1,000 mg Tablet 1,000 mg PO DAILY Diet: Advance to usual diet Activity on Discharge: As tolerated Stand Alone Forms: Patient Portal Discharge page Print Language: Syriac Care Plan Goals: Follow up with Hematology and specialists at [facility] for further management of sickle cell disease Health Concerns: Back pain Plan of Treatment: Follow up with primary care provider as needed Take all medications as prescribed Assessment: See discharge summary
[2024-12-08 19:10] VITALS: BP 112/59; PULSE 90; RESP 18; TEMP 36.7; O2SAT 97
[2024-12-08 23:36] VITALS: BP 102/61; PULSE 93; RESP 18; TEMP 37.2; O2SAT 98
[2024-12-09 03:17] VITALS: BP 105/65; PULSE 93; RESP 18; TEMP 36.8; O2SAT 97
[2024-12-09] MEDS: Morphine Sulfate ER 15 MG TABLET.ER PO (05:59)
[2024-12-09] MEDS: 0.9 % Sodium Chloride Flush 3 ML SYRINGE IVFLUSH (07:31)
[2024-12-09 07:58] VITALS: BP 108/64; PULSE 95; RESP 16; TEMP 36.5; O2SAT 95
--- NOTE | 2024-12-09 11:24 | MHC.CM.PN ---
DP: PT HAS BEEN MEDICALLY CLEARED FOR DC HOME, NO SERVICES. PT HAS OWN RIDE HOME.
[2024-12-09 11:35] VITALS: BP 132/76; PULSE 114; RESP 16; TEMP 36.1; O2SAT 98
--- NOTE | 2024-12-09 12:13 | P.DS_ITS ---
DS: Providers Provider Date of Service: 12/09/24 Date of admission: 12/05/24 00:37 Date of discharge: 12/09/24 Primary care physician: Vitaliy Sanchez NP Consults: 12/08/24 11:12 Consult to Hematology / Oncology Routine Consulting Provider: [facility] Oncology/Hematology Reason for consultation: sickle cell DS: Diagnosis Discharge Diagnosis (1) Transaminitis: Status: Acute (2) Hyperbilirubinemia: Status: Acute (3) Sickle cell crisis: Status: Acute (4) Sickle cell anemia: Status: Acute DS: Summary Hospital Course Hospital Course: From the history and physical by the admitting hospitalistFlorina 12/05/24: Pt is a 34 yo black female with PMH Sickle cell anemia diagnosed 6 months of age with multiple admissions for sickle cell crisis, cholecystectomy, avascular necrosis of the hips, asthma, anxiety, acute chest syndrome as a child is being seen today in the emergency department for report of a sickle cell crisis involving right hip pain and back pain. Patient states her pain started 2 days prior and then nausea developed earlier today prompting patient to seek intervention. Patient did try to reach the Cancer Center through [facility] for an appointment to treat her acute issues in the outpatient setting but there were no appointments available. Patient does have a current care plan for pain management established with [facility] through her chest painting and sealing supervisor in the ED provider was able to provide a copy. Patient recently moved to [place] and sought treatment here at [facility] as we are with the closest emergency department. Patient states her usual pain management regimen is morphine long-acting 30 mg q.8 hours along with oxycodone for breakthrough pain and then Benadryl and Zofran as needed. Patient does use marijuana often to help with pain management. Patient denies any regular alcohol use. Patient does follow with a chest painting and sealing supervisor at [facility] and also has a therapist in the community to help with pain and anxiety. Patient's a previous smoker. 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 Patient has received 2 mg of IV Dilaudid as well as Benadryl and Zofran and symptoms have improved. Patient denies any current nausea, chest pain, abdominal pain and her labs notes an elevated T bilirubin and LFTs secondary to sickle cell crisis most likely. Leukocytosis also noted and is likely reactive but UA is pending and chest x-ray is negative for any acute findings. Clinical exam is reassuring. She was admitted to the medical-surgical floor for sickle cell crisis possibly triggered by dehydration from increased exertion. She was treated with IV fluids and IV/PO opioids. Transamanisemia, hyperibilirubinemia, and hepatosteatosis atttributed to chronic RBC sequestration. Her case with discussed with her registered account administrator at [facility], Dr Danie Corea. She had been admitted to [facility] 11/07/24 and discharged 12/04/24. See was discharged home with instructions to take medications as prescribed at [facility] and to follow up with her registered account administrator within 1-2 weeks. Time Attestation Discharge Coordination Time (in mins): 35 Quality: Safe Use of Opioids Does Pt have an Active Cancer Diagnosis on the Problem List?: No Quality: Stroke Does the patient have a stroke diagnosis?: No Physical Exam Vital Signs: Vital Signs: Last Vital Signs Temp 96.9 F 12/09/24 11:35 Pulse 114 H 12/09/24 11:35 Resp 16 12/09/24 11:35 BP 132/76 12/09/24 11:35 Pulse Ox 98 12/09/24 11:35 O2 Del Method Room Air 12/09/24 11:35 BMI result Body Mass Index 28.7 Gen: in no acute distress HEENT: sclera anicteric, moist mucus membranes Neck: supple Lungs: clear to auscultation bilaterally Heart: regular rate and rhythm, no murmurs Abd: soft, non-tender, non-distended Ext: no edema Skin: warm/well-perfused Neuro: alert and oriented x3, no focal findings Psych: appropriate affect DS: Data Data Completed and Pending Completed studies during hospitalization [Text1]: Laboratory Results WBC 15.0 X10*3/uL (4.8-10.8) H 12/08/24 09:56 RBC 2.35 X10*6/uL (4.20-5.50) L 12/08/24 09:56 Hgb 9.3 g/dl (12.0-16.0) L 12/08/24 09:56 Hct 25.9 % (37.0-47.0) L 12/08/24 09:56 MCV 110.2 fL (80.0-98.0) H 12/08/24 09:56 MCH 39.6 pg (27.0-33.0) H 12/08/24 09:56 MCHC 35.9 g/dl (31.0-35.0) H 12/08/24 09:56 RDW 16.3 % (11.0-16.0) H 12/08/24 09:56 Plt Count 273 X10*3/uL (160-400) 12/08/24 09:56 MPV 9.5 fL (9.4-12.3) 12/08/24 09:56 Immature Gran % (Auto) 0.5 % (0.0-0.4) H 12/05/24 05:57 Neut % (Auto) 52.9 % (45-73) 12/05/24 05:57 Lymph % (Auto) 37.9 % (20-40) 12/05/24 05:57 [place] % (Auto) 7.2 % (2-11) 12/05/24 05:57 Eos % (Auto) 1.0 % (0-4) 12/05/24 05:57 Baso % (Auto) 0.5 % (0-2) 12/05/24 05:57 Lymph # (Auto) 6.4 X10*3/uL (1.2-4.9) H 12/05/24 05:57 [place] # (Auto) 1.2 X10*3/uL (0.1-1.2) 12/05/24 05:57 Eos # (Auto) 0.2 X10*3/uL (0.0-0.4) 12/05/24 05:57 Baso # (Auto) 0.1 X10*3/uL (0.0-0.2) 12/05/24 05:57 Abs Immat Gran (auto) 0.09 X10*3/uL (0.00-0.03) H 12/05/24 05:57 Absolute Neuts (auto) 8.9 x10*3/uL (2.0-8.3) H 12/05/24 05:57 Absolute Nucleated RBC 0.890 X10*3/uL (0.0-0.012) H 12/08/24 09:56 Nucleated RBC % (auto) 5.9 /100WBC (0.0-0.2) H 12/08/24 09:56 Smear Tech's Comments VERIFIED 12/05/24 05:57 Smear Path Review SEE NOTE 12/05/24 05:57 Absolute Retic 0.346 X10*6/uL (0.026-0.095) H 12/08/24 09:56 Percent Retic 14.9 % (0.5-1.8) H 12/08/24 09:56 Immature Retic Fraction 51.4 % (3.0-15.9) H 12/08/24 09:56 Retic Hgb Equivalent 37.3 pg (30.0-35.0) H 12/08/24 09:56 Sickle Cell Screen POSITIVE (NEGATIVE) H 12/08/24 09:56 Sodium 141 mmol/L (135-145) 12/08/24 09:56 Potassium 3.7 mmol/L (3.3-5.1) 12/08/24 09:56 Chloride 108 mmol/L (96-108) 12/08/24 09:56 Carbon Dioxide 26 mmol/L (22-29) 12/08/24 09:56 Anion Gap 11 (12-20) L 12/08/24 09:56 BUN 6 mg/dL (9-16) L 12/08/24 09:56 Creatinine 0.61 mg/dL (0.5-1.4) 12/08/24 09:56 Estim Creat Clear Calc 141.9 12/08/24 09:56 Estimated GFR > 60 12/08/24 09:56 Random Glucose 101 mg/dL (60-115) 12/08/24 09:56 Calcium 8.8 mg/dL (8.4-10.2) 12/08/24 09:56 Total Bilirubin 2.4 mg/dL (0.0-1.0) H 12/08/24 09:56 Direct Bilirubin 0.7 mg/dL (0.0-0.5) H 12/08/24 09:56 AST 43 U/L (5-31) H 12/08/24 09:56 ALT 69 U/L (0-31) H 12/08/24 09:56 Alkaline Phosphatase 89 U/L (39-117) 12/08/24 09:56 Total Creatine Kinase 27 U/L (26-140) 12/04/24 22:47 Total Protein 7.2 g/dL (6.5-8.0) 12/08/24 09:56 Albumin 3.8 g/dL (3.5-5.0) 12/08/24 09:56 Lipase 8 U/L (8-78) 12/04/24 22:47 Beta HCG, Quant < 2 mIU/mL 12/04/24 22:47 Urine Color Dark Yellow 12/05/24 05:57 Urine Appearance Clear 12/05/24 05:57 Urine pH 5.5 (5.0-9.0) 12/05/24 05:57 Ur Specific [place] 1.010 (1.005-1.025) 12/05/24 05:57 Urine Protein Negative mg/dL (Neg-Trace) 12/05/24 05:57 Urine Glucose (UA) Negative mg/dL (Negative) 12/05/24 05:57 Urine Ketones Trace mg/dL (Negative) 12/05/24 05:57 Urine Blood Negative (Negative) 12/05/24 05:57 Urine Nitrite Negative (Negative) 12/05/24 05:57 Ur Leukocyte Esterase Trace (Negative) H 12/05/24 05:57 Urine RBC 0-2 /HPF (0-2) 12/05/24 05:57 Urine WBC 0-5 /HPF (0-5) 12/05/24 05:57 Ur Squamous Epith Cells 3-5 /HPF (0-2) 12/05/24 05:57 Urine Bacteria Trace (None Seen) 12/05/24 05:57 Hyaline Casts 0-2 /LPF (0-2) 12/05/24 05:57 COVID-19 (DILCIA) Negative (Negative) 12/04/24 23:13 COVID-19 Clin Com See Note 12/04/24 23:13 Discharge Plan Discharge Anticipated Discharge Date/Time: 12/09/24 11:13 Patient Disposition: Home, Self-Care Discharge Diagnosis: Back pain Referrals: Vitaliy Sanchez NP [Primary Care Provider, Family Practice] - 1 Week Pepe Almonte MD [Physician, Oncology] - 1 Week Discharge Medications: Continued folic acid 1 mg Tablet 1 mg PO DAILY morphine 15 mg tablet extended release 15 mg PO Q8H PRN (Reason: Pain) duloxetine 20 mg capsule,delayed release(DR/EC) 20 mg PO DAILY hydroxyurea (sickle cell) 1,000 mg Tablet 1,000 mg PO DAILY Discharge Orders: Discharge Order (Routine); Ordered 12/09/24 Ordered By: Mckinley Gallegos Diet: Advance to usual diet Activity on Discharge: As tolerated Stand Alone Forms: Patient Portal Discharge page Print Language: French Care Plan Goals: Follow up with Hematology and specialists at [facility] [Dr Almonte] for further management of sickle cell disease Health Concerns: Back pain Plan of Treatment: Follow up with primary care provider as needed Take all medications as prescribed from [facility] 12/04/24 Assessment: See discharge summary
[2024-12-09 15:04] LABS: Hematocrit 29.4 % (35.0-45.0); Hemoglobin 9.8 g/dL (11.7-15.5); MCH 40.2 pg (27.0-33.0); MCV 120.5 fL (80.0-100.0); RBC 2.44 Million/uL (3.80-5.10); RDW 16.0 % (11.0-15.0)
== END 2024-12-09 13:10 | disposition home or self-care (01) | DRG 662 ==
LOC: HO.ED 12-05 00:42 → HO.EDOVER 12-05 00:49 → HO.S3 12-05 06:49
PROVIDERS: Hospitalist; Nurse Practitioner Acute Care; Nurse Practitioner Family; Physician Assistant; Admitting Provider Student in an Organized Health Care Education/Training Program; Emergency Provider Emergency Medicine; PCP Nurse Practitioner Family; Visit Provider Family Medicine
DX: D57.00 Hb-SS disease with crisis, unspecified (principal); E86.0 Dehydration; Z20.822 Contact with and (suspected) exposure to COVID-19; Z90.49 Acquired absence of other specified parts of digestive tract; Z79.899 Other long term (current) drug therapy
CPT/HCPCS: 36415; 71045; 76705; 80048; 80053; 80076; 81001; 82550; 83020; 83690; 84702; 85014; 85018; 85025; 85027; 85041; 85045; 85660; 87635; 93005; 99285; J1171; J1200; J1642; J1650; J2405; J7120

== ENCOUNTER → 2024-12-04 20:40 | Outpatient (BNV) | payer MEDICAID, SELFPAY | PROVIDERS: Admitting Provider Student in an Organized Health Care Education/Training Program; Emergency Provider Emergency Medicine; PCP Nurse Practitioner Family; Visit Provider Internal Medicine Cardiovascular Disease | DX: R00.0 Tachycardia, unspecified (principal) | CPT/HCPCS: 93010 ==

== ENCOUNTER → 2024-12-04 22:32 | Outpatient (BNV) | payer MEDICAID, SELFPAY | PROVIDERS: Admitting Provider Student in an Organized Health Care Education/Training Program; Emergency Provider Emergency Medicine; PCP Nurse Practitioner Family; Visit Provider Radiology Diagnostic Radiology | DX: D57.219 Sickle-cell/Hb-C disease with crisis, unspecified (principal); J98.11 Atelectasis | CPT/HCPCS: 71045 ==

== ENCOUNTER 2024-12-05 00:37 | Outpatient (BNV) | payer MEDICAID, SELFPAY | END 2024-12-05 14:00 | PROVIDERS: Admitting Provider Student in an Organized Health Care Education/Training Program; Emergency Provider Emergency Medicine; PCP Nurse Practitioner Family; Visit Provider Radiology Diagnostic Radiology | DX: R74.01 Elevation of levels of liver transaminase levels (principal); R17 Unspecified jaundice; D57.219 Sickle-cell/Hb-C disease with crisis, unspecified; M54.9 Dorsalgia, unspecified; Z90.49 Acquired absence of other specified parts of digestive tract | CPT/HCPCS: 76705 ==

== ENCOUNTER → 2024-12-05 00:37 | Outpatient (BNV) | payer MEDICAID, SELFPAY | PROVIDERS: Admitting Provider Student in an Organized Health Care Education/Training Program; Emergency Provider Emergency Medicine; PCP Nurse Practitioner Family; Visit Provider Nurse Practitioner Family | DX: R74.01 Elevation of levels of liver transaminase levels (principal); E80.6 Other disorders of bilirubin metabolism; D57.00 Hb-SS disease with crisis, unspecified; D57.1 Sickle-cell disease without crisis | CPT/HCPCS: 99232 ==